=== PATIENT | male | born 1980 | race African-American/Black ===

== ENCOUNTER 2025-02-07 17:41 | Emergency (ER) | payer SELFPAY ==
[~2025-02-07] VITALS: Ht 185.4 cm; Wt 99.9 kg
[2025-02-07] MEDS ORDERED: TRAZ300T2 PO ×2 (18:41→19:42)
[2025-02-07] MEDS ORDERED: CEPH500C PO (19:42)
[2025-02-07] MEDS ORDERED: TRIA1CR80 TOP (19:42)
[2025-02-07] MEDS: traZODone 100 MG TAB PO ONE (19:52)
[2025-02-07 19:56] VITALS: O2SAT 97
[2025-02-07 20:00] VITALS: BP 131/75; TEMP 98.9
== END 2025-02-07 20:28 | disposition home or self-care (01) ==
LOC: M ED 17:41
DX: R21 Rash and other nonspecific skin eruption (principal); Z76.0 Encounter for issue of repeat prescription; Z79.899 Other long term (current) drug therapy; Z79.2 Long term (current) use of antibiotics